=== PATIENT | female | born 1980 | race Caucasian/White ===

== ENCOUNTER 2019-01-23 00:43 | Outpatient (CLI) | payer MEDICAID | END 2019-01-23 00:44 | disposition EMS.NT | LOC: EMS 00:43 | PROVIDERS: ATTEND Surgery | DX: Z03.89 Encounter for observation for other suspected diseases and conditions ruled out (principal) ==

== ENCOUNTER 2019-01-29 08:00 | Outpatient (CLI) | payer MEDICAID ==
[2019-01-29 18:38] LABS: BASOPHILS # (AUTO) 0.1 10^3/uL (0.0-0.1); BASOPHILS % (AUTO) 0.9 %; EOSINOPHILS # (AUTO) 0.1 10^3/uL (0.0-0.7); EOSINOPHILS % (AUTO) 1.7 %; HGB - HEMOGLOBIN 12.6 g/dL (12.0-16.0); LYMPHOCYTES # (AUTO) 1.3 10^3/uL (1.5-3.5); LYMPHOCYTES % (AUTO) 21.2 %; MEAN CORPUSCULAR HEMOGLOBIN 30.9 pg (27.0-31.0); MEAN CORPUSCULAR HGB CONC 31.3 g/dL (32.0-36.0); MEAN CORPUSCULAR VOLUME 98.5 fL (81.0-99.0); MEAN PLATELET VOLUME 11.6 fL (7.9-10.8); MONOCYTES # (AUTO) 0.6 10^3/uL (0.0-1.0); MONOCYTES % (AUTO) 8.9 %; NEUTROPHILS # (AUTO) 4.2 10^3/uL (1.5-6.6); PLT - PLATELET COUNT 224 10^3/uL (130-450); RED BLOOD COUNT 4.08 10^6/uL (4.20-5.40); RED CELL DISTRIBUTION WIDTH 14.5 % (12.0-15.0); WHITE BLOOD COUNT 6.3 x10^3/uL (4.8-10.8)
[2019-01-29 18:58] LABS: ALBUMIN 4.1 g/dL (3.2-5.5); ALBUMIN/GLOBULIN RATIO 1.3 (1.0-2.2); BILIRUBIN,TOTAL 0.7 mg/dL (0.2-1.0); CREATININE 0.7 mg/dL (0.4-1.0); TOTAL PROTEIN 7.2 g/dL (6.7-8.2)
[2019-02-02 12:12] LABS: HSV 1 IGG TYPE SPECIFIC AB 5.87 index; HSV 2 IGG TYPE SPECIFIC AB 3.97 index
== END 2019-01-29 23:59 | disposition home or self-care (01) ==
LOC: LAB.WCP 08:00
PROVIDERS: ATTEND Physician Assistant
DX: Z00.00 Encounter for general adult medical examination without abnormal findings (principal); E03.9 Hypothyroidism, unspecified; Z20.2 Contact with and (suspected) exposure to infections with a predominantly sexual mode of transmission
CPT/HCPCS: 36415; 80053; 81599; 84443; 85025; 86695; 86696

== ENCOUNTER 2019-04-26 08:31 | Emergency (ER) | payer MEDICAID ==
[2019-04-26] MEDS ORDERED: DEXAMETHASONE 10 MG/ML VIAL PO STA (08:46)
[2019-04-26] MEDS ORDERED: CHERRY SYRUP 10 ML UDC PO ONE (08:46)
[2019-04-26] MEDS ORDERED: KETOROLAC 60 MG/2 ML VIAL IM STA (08:46)
[2019-04-26] MEDS ORDERED: LIDOCAINE PATCH 5% TOP STA (08:47)
--- NOTE | 2019-04-26 08:49 | ED Physician Documentation ---
PD HPI BACK PAIN - Stated complaint Stated Complaint: BACK PAIN - Chief complaint Chief Complaint: Back Pain - History obtained from History obtained from: Patient - History of Present Illness Timing - onset: Last night Timing - details: Still present Location: Lower, Left Quality: Pain, Spasm Worsened by: Movement Similar symptoms before: Has not had sx before - Additional information Additional information: The patient is a 38-year-old female who presents with left lower back pain that started last night when she bent over in the shower to shave her legs. The pain is worse with movement. She describes it as a sharp pain with spasms. She denies fever, urinary incontinence, numbness or weakness. She has had occasional milder back pain in the past, but never this bad. Review of Systems Constitutional: denies: Fever Nose: denies: Congestion Throat: denies: Sore throat Cardiac: denies: Chest pain / pressure Respiratory: denies: Dyspnea, Cough GI: denies: Abdominal Pain, Nausea, Vomiting : denies: Dysuria, Incontinent Skin: denies: Rash Musculoskeletal: reports: Back pain. denies: Extremity pain Neurologic: denies: Focal weakness, Numbness, Headache PD PAST MEDICAL HISTORY - Past Medical History Cardiovascular: None Respiratory: None Endocrine/Autoimmune: None - Present Medications Home Medications: Ambulatory Orders Medication Instructions Recorded Confirmed Buspirone HCl 10 mg PO BID 04/26/19 04/26/19 Cyclobenzaprine [Flexeril] 10 mg PO TID PRN #20 tablet 04/26/19 LORazepam [Lorazepam] 0.5 mg PO BID PRN 04/26/19 04/26/19 Levothyroxine Sodium 100 mcg PO DAILY 04/26/19 04/26/19 Lidocaine Patch 5% [Lidoderm Patch] 1 patch TOP DAILY PRN #10 patch 04/26/19 Sertraline HCl [Zoloft] 100 mg PO DAILY 04/26/19 04/26/19 buPROPion HCl [Bupropion HCl ER] 200 mg PO BID 04/26/19 04/26/19 - Allergies Allergies/Adverse Reactions: Allergies Allergy/AdvReac Type Severity Reaction Status Date / Time acetaminophen [From Percocet] Allergy Respiratory Verified 04/26/19 08:37 morphine Allergy Respiratory Verified 04/26/19 08:37 oxycodone [From Percocet] Allergy Respiratory Verified 04/26/19 08:37 PD ED PE NORMAL - Vitals Vital signs reviewed: Yes (Normal) - General General: Alert and oriented X 3, Well developed/nourished - HEENT HEENT: Atraumatic - Neck Neck: Supple, no meningeal sign, No bony TTP, No adenopathy - Cardiac Cardiac: RRR - Respiratory Respiratory: No respiratory distress, Clear bilaterally - Abdomen Abdomen: Soft, Non tender - Back Back: No CVA TTP, No spinal TTP, Other (There is tenderness to palpation in the left paralumbar musculature. No tenderness along the spinous processes.) - Derm Derm: No rash - Extremities Extremities: No edema, No calf tenderness / cord, Other (Straight leg raise test is negative bilaterally.) - Neuro Neuro: Alert and oriented X 3, No motor deficit, No sensory deficit, Other (Deep tendon reflexes are 2+ and equal bilaterally at the patellar and Achilles tendons.) Results - Vitals Vitals: Vital Signs - 24 hr 04/26/19 08:37 Temperature 37 C Heart Rate 84 Respiratory 18 Rate Blood Pressure 136/67 H O2 Saturation 97 Oxygen O2 Source Room air PD MEDICAL DECISION MAKING - ED course Complexity details: reviewed old records, re-evaluated patient, considered differential, d/w patient ED course: The patient's presentation is most consistent with lumbar strain. Her presentation does not suggest epidural abscess, spinal stenosis, or cauda equina syndrome. Treatment in the emergency department included administration of ketorolac 60 mg IM, dexamethasone 10 mg orally, and Lidoderm patch. She is being discharged with prescriptions for Lidoderm patch and Flexeril. I discussed with her the expected course of illness, symptomatic treatment and outpatient follow-up, as well as potentially worrisome signs or symptoms that should prompt reevaluation in the emergency department. Departure - Departure Disposition: 01 Home, Self Care Clinical Impression: Low back pain Qualifiers: Chronicity: acute Back pain laterality: left Sciatica presence: without sciatica Qualified Code(s): M54.5 - Low back pain Condition: Stable Instructions: ED Low Back Pain Injury Follow-Up: Mindi Palencia PA [Primary Care Provider] - Prescriptions: Cyclobenzaprine [Flexeril] 10 mg PO TID PRN #20 tablet PRN Reason: Spasms Lidocaine Patch 5% [Lidoderm Patch] 1 patch TOP DAILY PRN #10 patch PRN Reason: pain Comments: Apply ice pack to your lower back intermittently for the next several days. You can use Lidoderm patch daily as prescribed. You can use Flexeril as prescribed if needed for muscle spasm. You can also use ibuprofen, up to 800 mg 3 times daily for anti-inflammatory effect. Let pain be your guide to activity level. Follow-up with your primary physician within 2 weeks. Call to schedule an appointment. Return to the emergency department if you develop increasing pain, or otherwise worsening symptoms. Forms: Activity restrictions
[2019-04-26 09:45] VITALS: BP 125/84
== END 2019-04-26 09:52 | disposition home or self-care (01) ==
LOC: ED 08:31
DX: M54.5 Low back pain (principal)
CPT/HCPCS: 96372; 99283; A9270

== ENCOUNTER 2019-07-28 12:05 | Emergency (ER) | payer MEDICAID ==
[2019-07-28 12:14] VITALS: BP 119/67
--- NOTE | 2019-07-28 13:00 | ED Physician Documentation ---
History of Present Illness - Stated complaint Stated Complaint: COUGH - Chief complaint Chief Complaint: Fever - History obtained from History obtained from: Patient (39-year-old otherwise healthy woman got sick last night with cough minimally productive, body aches, fevers and chills. Also runny nose. 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 No underlying asthma or possibility of . No shortness of breath.) Review of Systems Constitutional: reports: Fever, Chills, Myalgias, Fatigue Nose: reports: Rhinorrhea / runny nose Throat: denies: Sore throat Respiratory: reports: Cough. 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 : None HEENT: None Psych: Depression, Anxiety Musculoskeletal: None Derm: None - Past Surgical History Past Surgical History: Yes General: Cholecystectomy HEENT: Tonsil/Adenoidectomy - Present Medications Home Medications: Ambulatory Orders Medication Instructions Recorded Confirmed Buspirone HCl 10 mg PO BID 04/26/19 04/26/19 Cyclobenzaprine [Flexeril] 10 mg PO TID PRN #20 tablet 04/26/19 LORazepam [Lorazepam] 0.5 mg PO BID PRN 04/26/19 04/26/19 Levothyroxine Sodium 100 mcg PO DAILY 04/26/19 04/26/19 Lidocaine Patch 5% [Lidoderm Patch] 1 patch TOP DAILY PRN #10 patch 04/26/19 Sertraline HCl [Zoloft] 100 mg PO DAILY 04/26/19 04/26/19 buPROPion HCl [Bupropion HCl ER] 200 mg PO BID 04/26/19 04/26/19 Ibuprofen [Motrin] 800 mg PO Q8H PRN #30 tablet 07/28/19 - Allergies Allergies/Adverse Reactions: Allergies Allergy/AdvReac Type Severity Reaction Status Date / Time acetaminophen [From Percocet] Allergy Respiratory Verified 07/28/19 12:12 morphine Allergy Respiratory Verified 07/28/19 12:12 oxycodone [From Percocet] Allergy Respiratory Verified 07/28/19 12:12 - Social History Does the pt smoke?: Yes Smoking Status: Current every day smoker Does the pt drink ETOH?: Yes Does the pt have substance abuse?: Yes - Immunizations Immunizations are current?: No - POLST Patient has POLST: No PD ED PE NORMAL - Vitals Vital signs reviewed: Yes - General General: Alert and oriented X 3, No acute distress - HEENT HEENT: Other (mild conjuctivits) - Neck Neck: Supple, no meningeal sign, No bony TTP - Cardiac Cardiac: RRR, No murmur - Respiratory Respiratory: No respiratory distress, Clear bilaterally - Abdomen Abdomen: Non tender - Back Back: No CVA TTP, No spinal TTP - Derm Derm: No rash - Neuro Neuro: Alert and oriented X 3, Normal speech Results - Vitals Vitals: Vital Signs - 24 hr 07/28/19 12:12 Temperature 36.5 C Heart Rate 83 Respiratory 16 Rate Blood Pressure 119/67 O2 Saturation 98 Oxygen O2 Source Room air - Labs Labs: Laboratory Tests 07/28/19 12:17 Influenza A (Rapid) Negative Influenza B (Rapid) Negative PD MEDICAL DECISION MAKING - ED course ED course: This is a 39-year-old woman who presents with an acute illness consistent with influenza, her flu swab is negative. Otherwise her symptoms and signs are fairly typical with bilateral conjunctivitis, runny nose, body aches, clear lungs. We discussed Tamiflu but I did not recommend it given the negative swab, we did discuss it may be a false negative given her typical symptoms and the underlying outbreak. She is agreeable and will do conservative measures at home and mostly needs a work note. Departure - Departure Disposition: 01 Home, Self Care Clinical Impression: Flu-like symptoms Condition: Good Record reviewed to determine appropriate education?: Yes Instructions: ED Flu Prescriptions: Ibuprofen [Motrin] 800 mg PO Q8H PRN #30 tablet PRN Reason: PAIN &/OR FEVER Comments: Return if you worsen, especially if you develop shortness of breath or other new symptoms. Forms: Activity restrictions
== END 2019-07-28 13:03 | disposition home or self-care (01) ==
LOC: ED 12:05
DX: H10.9 Unspecified conjunctivitis (principal); R09.89 Other specified symptoms and signs involving the circulatory and respiratory systems; R05 Cough; R50.9 Fever, unspecified; M79.18 Myalgia, other site; F17.200 Nicotine dependence, unspecified, uncomplicated
CPT/HCPCS: 87275; 87276; 99283

== ENCOUNTER 2019-08-30 20:23 | Emergency (ER) | payer MEDICAID ==
--- NOTE | 2019-08-30 20:41 | ED Physician Documentation ---
History of Present Illness - Stated complaint Stated Complaint: ABD PAIN/CRAMPING - Chief complaint Chief Complaint: Abd Pain - History obtained from History obtained from: Patient (the patient is a 39 Y/O F who p/w a cc of crampy abd discomfort and bloating for the last 3 days, she states she started the keto diet 1 week ago and is now having alternating periods of loose stools and constipation, she denies bloody stools or fevers or severe adb pain, has had a previous cholecystectomy.) Review of Systems Ten Systems: 10 systems reviewed and negative Constitutional: reports: Reviewed and negative Eyes: reports: Reviewed and negative Ears: reports: Reviewed and negative Nose: reports: Reviewed and negative Throat: reports: Reviewed and negative Cardiac: reports: Reviewed and negative Respiratory: reports: Reviewed and negative GI: reports: Nausea, Constipation, Diarrhea : reports: Reviewed and negative Skin: reports: Reviewed and negative Musculoskeletal: reports: Reviewed and negative Neurologic: reports: Reviewed and negative Psychiatric: reports: Reviewed and negative Endocrine: reports: Reviewed and negative Immunocompromised: reports: Reviewed and negative PD PAST MEDICAL HISTORY - Past Medical History Cardiovascular: None Respiratory: None Neuro: None Endocrine/Autoimmune: None GI: None 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 : None HEENT: None Psych: Depression, Anxiety Musculoskeletal: None Derm: None - Past Surgical History Past Surgical History: Yes General: Cholecystectomy HEENT: Tonsil/Adenoidectomy - Present Medications Home Medications: Ambulatory Orders Medication Instructions Recorded Confirmed Buspirone HCl 10 mg PO BID 04/26/19 04/26/19 Cyclobenzaprine [Flexeril] 10 mg PO TID PRN #20 tablet 04/26/19 LORazepam [Lorazepam] 0.5 mg PO BID PRN 04/26/19 04/26/19 Levothyroxine Sodium 100 mcg PO DAILY 04/26/19 04/26/19 Lidocaine Patch 5% [Lidoderm Patch] 1 patch TOP DAILY PRN #10 patch 04/26/19 Sertraline HCl [Zoloft] 100 mg PO DAILY 04/26/19 04/26/19 buPROPion HCl [Bupropion HCl ER] 200 mg PO BID 04/26/19 04/26/19 Ibuprofen [Motrin] 800 mg PO Q8H PRN #30 tablet 07/28/19 Dicyclomine [Bentyl] 20 mg PO QID 2 Days #10 capsule 08/31/19 - Allergies Allergies/Adverse Reactions: Allergies Allergy/AdvReac Type Severity Reaction Status Date / Time acetaminophen [From Percocet] Allergy Respiratory Verified 07/28/19 12:12 morphine Allergy Respiratory Verified 07/28/19 12:12 oxycodone [From Percocet] Allergy Respiratory Verified 07/28/19 12:12 - Social History Does the pt smoke?: Yes Smoking Status: Current every day smoker Does the pt drink ETOH?: Yes Does the pt have substance abuse?: Yes - Immunizations Immunizations are current?: No - POLST Patient has POLST: No PD ED PE NORMAL - Vitals Vital signs reviewed: Yes - General General: Alert and oriented X 3, No acute distress - HEENT HEENT: PERRL - Neck Neck: Supple, no meningeal sign - Cardiac Cardiac: RRR, No murmur - Respiratory Respiratory: Clear bilaterally - Abdomen Abdomen: Normal bowel sounds, Soft, Non tender, Non distended, No organomegaly - Derm Derm: Warm and dry - Extremities Extremities: No deformity - Neuro Neuro: Alert and oriented X 3, 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, No motor deficit, No sensory deficit, Normal speech - Psych Psych: Normal mood, Normal affect Results - Vitals Vitals: Vital Signs - 24 hr 08/30/19 20:34 Temperature 36.9 C Heart Rate 75 Respiratory 14 Rate Blood Pressure 144/63 H O2 Saturation 100 Oxygen O2 Source Room air - Labs Labs: Laboratory Tests 08/30/19 08/30/19 08/30/19 20:50 21:30 21:30 WBC 11.9 H RBC 4.35 Hgb 13.4 Hct 40.3 MCV 92.6 MCH 30.8 MCHC 33.3 RDW 13.2 Plt Count 217 MPV 11.8 H Neut # (Auto) 9.6 H Lymph # (Auto) 1.2 L [place] # (Auto) 0.8 Eos # (Auto) 0.2 Baso # (Auto) 0.1 Absolute Nucleated RBC 0.00 Nucleated RBC % 0.0 Sodium 136 Potassium 3.3 L Chloride 99 L Carbon Dioxide 21 Anion Gap 16.0 H BUN 12 Creatinine 0.8 Estimated GFR (MDRD) 80 L Glucose 76 Lactic Acid Calcium 8.9 Total Bilirubin 0.8 AST 14 ALT 19 Alkaline Phosphatase 43 Total Protein 7.3 Albumin 4.1 Globulin 3.2 Albumin/Globulin Ratio 1.3 Lipase 28 Urine Color YELLOW Urine Clarity CLEAR Urine pH 5.0 Ur Specific [place] 1.010 Urine Protein NEGATIVE Urine Glucose (UA) NEGATIVE Urine Ketones 15 H Urine Occult Blood NEGATIVE Urine Nitrite NEGATIVE Urine Bilirubin NEGATIVE Urine Urobilinogen 0.2 (NORMAL) Ur Leukocyte Esterase NEGATIVE Ur Microscopic Review NOT INDICATED Urine Culture Comments NOT INDICATED Urine HCG, Qual NEGATIVE 08/30/19 21:30 WBC RBC Hgb Hct MCV MCH MCHC RDW Plt Count MPV Neut # (Auto) Lymph # (Auto) [place] # (Auto) Eos # (Auto) Baso # (Auto) Absolute Nucleated RBC Nucleated RBC % Sodium Potassium Chloride Carbon Dioxide Anion Gap BUN Creatinine Estimated GFR (MDRD) Glucose Lactic Acid 0.7 Calcium Total Bilirubin AST ALT Alkaline Phosphatase Total Protein Albumin Globulin Albumin/Globulin Ratio Lipase Urine Color Urine Clarity Urine pH Ur Specific [place] Urine Protein Urine Glucose (UA) Urine Ketones Urine Occult Blood Urine Nitrite Urine Bilirubin Urine Urobilinogen Ur Leukocyte Esterase Ur Microscopic Review Urine Culture Comments Urine HCG, Qual PD MEDICAL DECISION MAKING - ED course Complexity details: re-evaluated patient (pain is 08/06 at 00:24. patient updated on results. 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 case discussed, recommend close follow up and discharge patient home. ) Departure - Departure Disposition: 01 Home, Self Care Clinical Impression: Abdominal pain Qualifiers: Abdominal location: unspecified location Qualified Code(s): R10.9 - Unspecified abdominal pain Condition: Good Instructions: Abdominal Pain Follow-Up: Mindi Palencia PA [Primary Care Provider] - Tomorrow Kelsey Simeon MD [Provider Admit Priv/Credential] - Within 1 week Prescriptions: Dicyclomine [Bentyl] 20 mg PO QID 2 Days #10 capsule
[2019-08-30] MEDS ORDERED: DICYCLOMINE 10 MG CAPSULE PO STA (20:59)
[2019-08-30 21:09] LABS: BILIRUBIN,URINE NEGATIVE (NEGATIVE); GLUCOSE, URINE (UA) NEGATIVE (NEGATIVE); KETONES,URINE (UA) 15 mg/dL (NEGATIVE); LEUKOCYTE ESTERASE, URINE NEGATIVE (NEGATIVE); NITRITE,URINE NEGATIVE (NEGATIVE); OCCULT BLOOD,URINE NEGATIVE (NEGATIVE); PROTEIN,URINE NEGATIVE (NEGATIVE); UROBILINOGEN,URINE 0.2 (NORMAL) E.U./dL (NORMAL)
[2019-08-30 21:11] LABS: CLARITY,URINE CLEAR (CLEAR); HCG UR QUAL NEGATIVE
[2019-08-30 21:38] LABS: BASOPHILS # (AUTO) 0.1 10^3/uL (0.0-0.1); BASOPHILS % (AUTO) 0.6 %; EOSINOPHILS # (AUTO) 0.2 10^3/uL (0.0-0.7); EOSINOPHILS % (AUTO) 1.3 %; HGB - HEMOGLOBIN 13.4 g/dL (12.0-16.0); LYMPHOCYTES # (AUTO) 1.2 10^3/uL (1.5-3.5); LYMPHOCYTES % (AUTO) 10.1 %; MEAN CORPUSCULAR HEMOGLOBIN 30.8 pg (27.0-31.0); MEAN CORPUSCULAR HGB CONC 33.3 g/dL (32.0-36.0); MEAN CORPUSCULAR VOLUME 92.6 fL (81.0-99.0); MEAN PLATELET VOLUME 11.8 fL (7.9-10.8); MONOCYTES # (AUTO) 0.8 10^3/uL (0.0-1.0); MONOCYTES % (AUTO) 6.9 %; NEUTROPHILS # (AUTO) 9.6 10^3/uL (1.5-6.6); NEUTROPHILS % (AUTO) 80.6 %; PLT - PLATELET COUNT 217 10^3/uL (130-450); RED BLOOD COUNT 4.35 10^6/uL (4.20-5.40); RED CELL DISTRIBUTION WIDTH 13.2 % (12.0-15.0); WHITE BLOOD COUNT 11.9 x10^3/uL (4.8-10.8)
[2019-08-30] MEDS: SODIUM CHLORIDE 0.9% 1,000 ML IV ONE (21:46)
[2019-08-30 22:20] LABS: ALBUMIN 4.1 g/dL (3.2-5.5); ALBUMIN/GLOBULIN RATIO 1.3 (1.0-2.2); BILIRUBIN,TOTAL 0.8 mg/dL (0.2-1.0); CALCIUM 8.9 mg/dL (8.5-10.3); CREATININE 0.8 mg/dL (0.4-1.0); TOTAL PROTEIN 7.3 g/dL (6.7-8.2)
[2019-08-30] MEDS ORDERED: ONDANSETRON 4 MG/2 ML VIAL IVP STA (22:25)
[2019-08-30] MEDS ORDERED: fentaNYL 100 MCG/2 ML VIAL IVP STA (22:26)
[2019-08-30] MEDS ORDERED: IOVERSOL 320 100 ML VIAL IVP ONE ×2 (22:51→23:25)
--- NOTE | 2019-08-31 00:07 | CT Report ---
Reason: abd pain Procedure Date: 08/30/2019 Accession Number: [id number] / [id number] Procedure: CT - Abdomen/Pelvis W CPT Code: Final Report FULL RESULT: EXAM: CT ABDOMEN AND PELVIS EXAM DATE: 08/30/2019 11:27 PM. CLINICAL HISTORY: Abd pain. Recent keto diet. COMPARISONS: None. TECHNIQUE: Routine helical CT imaging was performed through the abdomen and pelvis. IV contrast: OPTI 320 100ML. Enteric contrast: No. Reconstructions: Coronal and sagittal. In accordance with CT protocol optimization, one or more of the following dose reduction techniques were utilized for this exam: automated exposure control, adjustment of mA and/or KV based on patient size, or use of iterative reconstructive technique. FINDINGS: Lung Bases: Unremarkable. Liver: Normal. No masses. Gallbladder/Bile Ducts: Status post cholecystectomy. Spleen: Normal. Pancreas: Normal. Adrenal Glands: Normal. Kidneys: Normal. No masses or hydronephrosis. Peritoneal Cavity/Bowel: Some mild diffuse wall thickening of the colon, with prominent haustral folds. Also some mildly enlarged mesenteric and right ileocolic chain lymph nodes, measuring up to 1 cm in size. No free air or free fluid. Slightly more prominent mucosal enhancement at the terminal ileum. Approximately 2.8 cm segment of jejunojejunal intussusception in the left anterior abdomen, best seen on the transverse image 49 of series 4, coronal image 14 series 6. Another jejunojejunal intussusception in the left abdomen best seen on image 22 of series 6, and image 19 of series 7. Measures approximately 6 cm. No proximal dilatation that would suggest obstruction at this time. Some high density fluid or material in the colon, from unknown etiology. The appendix is well visualized and normal. Pelvic Organs: Normal. The bladder and visualized pelvic organs are within normal limits. Vasculature: No aneurysms or other significant abnormality. Bones: No significant abnormality. Other: None. IMPRESSION: At least two jejunojejunal intussusceptions, without any evidence of a high-grade bowel obstruction at this time. Transient adult jejunal intussusception can be a rare cause of abdominal pain. However, there is also some apparent wall thickening involving the colon, with prominence of the haustral folds. Correlate clinically for any symptoms of gastroenteritis or history of inflammatory bowel disease. Mildly enlarged mesenteric lymph nodes may be reactive. [facility] The call report notification system was initiated by Dr. Fernando Mai at 11:52 PM on 08/30/2019. The above call report findings were discussed with Bryan Ma by Dr. Fernando Mai at 12:04 AM on 08/31/2019.
[2019-08-31] MEDS: SODIUM CHLORIDE 0.9% 1,000 ML IV ONE (00:23)
[2019-08-31 00:39] VITALS: BP 113/56
== END 2019-08-31 00:45 | disposition home or self-care (01) ==
LOC: ED 20:23
DX: R10.9 Unspecified abdominal pain (principal); R93.5 Abnormal findings on diagnostic imaging of other abdominal regions, including retroperitoneum; F17.200 Nicotine dependence, unspecified, uncomplicated
CPT/HCPCS: 36415; 74177; 80053; 81003; 81025; 83605; 83690; 85025; 96374; 99284; 99285; A9270; Q9967; 81001; 87086

== ENCOUNTER 2019-09-01 08:00 | Outpatient (CLI) | payer MEDICAID ==
[2019-09-01 13:20] LABS: BASOPHILS # (AUTO) 0.1 10^3/uL (0.0-0.1); BASOPHILS % (AUTO) 0.5 %; EOSINOPHILS # (AUTO) 0.2 10^3/uL (0.0-0.7); EOSINOPHILS % (AUTO) 1.4 %; HGB - HEMOGLOBIN 13.4 g/dL (12.0-16.0); LYMPHOCYTES # (AUTO) 1.2 10^3/uL (1.5-3.5); LYMPHOCYTES % (AUTO) 10.1 %; MEAN CORPUSCULAR HEMOGLOBIN 31.2 pg (27.0-31.0); MEAN CORPUSCULAR HGB CONC 33.5 g/dL (32.0-36.0); MEAN PLATELET VOLUME 12.9 fL (7.9-10.8); MONOCYTES % (AUTO) 8.5 %; NEUTROPHILS # (AUTO) 9.2 10^3/uL (1.5-6.6); NEUTROPHILS % (AUTO) 78.8 %; PLT - PLATELET COUNT 235 10^3/uL (130-450); RED CELL DISTRIBUTION WIDTH 13.2 % (12.0-15.0); WHITE BLOOD COUNT 11.6 x10^3/uL (4.8-10.8)
[2019-09-01 14:02] LABS: CALCIUM 8.7 mg/dL (8.5-10.3); CREATININE 0.7 mg/dL (0.4-1.0)
== END 2019-09-01 23:59 | disposition home or self-care (01) ==
LOC: LAB.WCP 08:00
PROVIDERS: ATTEND Family Medicine
DX: R10.9 Unspecified abdominal pain (principal)
CPT/HCPCS: 36415; 80048; 83993; 85025; 85651; 86021

== ENCOUNTER 2020-06-08 12:16 | Outpatient (CLI) | payer MEDICAID | END 2020-06-08 12:17 | disposition home or self-care (01) | LOC: COV 12:16 | PROVIDERS: ATTEND Family Medicine | DX: R05 Cough (principal); R09.81 Nasal congestion; Z20.828 Contact with and (suspected) exposure to other viral communicable diseases ==

== ENCOUNTER 2020-09-06 07:32 | Emergency (ER) | payer MEDICAID ==
[2020-09-06 10:11] VITALS: BP 119/61
[2020-09-06] MEDS ORDERED: HYDROcod/ACETAM 5/325 MG TABLET PO STA (10:41)
--- NOTE | 2020-09-06 10:44 | ED Physician Documentation ---
History of Present Illness - Stated complaint Stated Complaint: BACK PX - Chief complaint Chief Complaint: Back Pain - History obtained from History obtained from: Patient - Additonal information Additional information: Patient comes emergency department chief complaint of low back pain since yesterday. Patient states she was in the bath and attempting to wash herself, when she bent over toward her left leg and suddenly felt a twinge in her left low back. Patient states that she instantly felt a sense of spasm and pain in the area. Patient states that it seemed worse overnight and she did not sleep very well. She states that her back was stiff and painful this morning when she tried to get up. Patient denies any loss of bowel or bladder control. No urinary symptoms. She has a mild amount of numbness and tingling in her left leg. No pain shooting down the leg. No abdominal pain, nausea, or fevers. No other complaints at this time. She does states she has a history of Crohn's dis ease and that she cannot take NSAIDs. She has tried taking Tylenol at home, which has not helped much. Review of Systems Ten Systems: 10 systems reviewed and negative Constitutional: reports: Reviewed and negative Eyes: reports: Reviewed and negative Ears: reports: Reviewed and negative Nose: reports: Reviewed and negative Throat: reports: Reviewed and negative Cardiac: reports: Reviewed and negative Respiratory: reports: Reviewed and negative GI: reports: Reviewed and negative : reports: Reviewed and negative. 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 HEENT: None Psych: Depression, Anxiety Musculoskeletal: None Derm: None - Past Surgical History Past Surgical History: Yes General: Cholecystectomy HEENT: Tonsil/Adenoidectomy - Present Medications Home Medications: Ambulatory Orders Medication Instructions Recorded Confirmed Buspirone HCl 10 mg PO BID 04/26/19 02/17/20 LORazepam [Lorazepam] 0.5 mg PO BID PRN 04/26/19 02/17/20 Levothyroxine Sodium 100 mcg PO DAILY 04/26/19 02/17/20 buPROPion HCl [Bupropion HCl ER] 200 mg PO BID 04/26/19 02/17/20 Mesalamine 4 tab PO DAILY 02/17/20 02/17/20 azaTHIOprine [Azathioprine] 50 mg PO DAILY 02/17/20 02/17/20 Cyclobenzaprine [Flexeril] 10 mg PO TID PRN #20 tab 09/06/20 HYDROcod/ACETAM 5/325 [[place] 5/325] 1 - 2 ea PO Q6H PRN #15 09/06/20 Sertraline HCl 100 mg PO DAILY 09/06/20 09/06/20 - Allergies Allergies/Adverse Reactions: Allergies Allergy/AdvReac Type Severity Reaction Status Date / Time acetaminophen [From Percocet] Allergy Respiratory Verified 02/17/20 11:07 morphine Allergy Respiratory Verified 02/17/20 11:06 oxycodone [From Percocet] Allergy Respiratory Verified 02/17/20 11:06 pollen extracts Allergy Respiratory Verified 05/25/20 11:03 - Social History Does the pt smoke?: Yes Smoking Status: Current every day smoker Does the pt drink ETOH?: Yes Does the pt have substance abuse?: No Substance Use and Type: Marijuana - Immunizations Immunizations are current?: No - POLST Patient has POLST: No PD ED PE NORMAL - Vitals Vital signs reviewed: Yes - General General: Alert and oriented X 3, No acute distress, Well developed/nourished - HEENT HEENT: Atraumatic, PERRL, EOMI, Moist mucous membranes - Neck Neck: Supple, no meningeal sign, No bony TTP - Cardiac Cardiac: RRR, No murmur, Strong equal pulses - Respiratory Respiratory: No respiratory distress, Clear bilaterally - Abdomen Abdomen: Soft, Non tender, Non distended - Back Back: No spinal TTP, Other (Mild tenderness palpation over the left lumbosacral paraspinal musculature.) - Derm Derm: Normal color, Warm and dry, No rash - Extremities Extremities: No deformity, No edema, No calf tenderness / cord - Neuro Neuro: Alert and oriented X 3 - Psych Psych: Normal mood, Normal affect Results - Vitals Vitals: Vital Signs - 24 hr 09/06/20 09/06/20 09/06/20 07:44 07:52 09:52 Temperature 36.8 C 37.0 C 36.8 C Heart Rate 82 73 71 Respiratory 16 16 16 Rate Blood Pressure 117/80 124/65 119/61 O2 Saturation 94 100 98 Oxygen O2 Source Room air PD MEDICAL DECISION MAKING - ED course Complexity details: considered differential, d/w patient ED course: I discussed with the patient that I do not find evidence of a serious or potentially emergent cause or consequence of her back pain/injury. I suspect a muscular strain, and we have discussed that this will be self-limited in time. The patient's been given a dose of hydrocodone here. I will prescribe hydrocodone and Flexeril for her. We have discussed that if in 2 weeks she does not notice any improvement, she may need to speak with her primary care physician about having an MRI done. If she develops progressive neurologic deficit of her lower extremities, or loss of bowel or bladder control, then she should return to the emergency department immediately. Departure - Departure Disposition: 01 Home, Self Care Clinical Impression: Low back strain Qualifiers: Encounter type: initial encounter Qualified Code(s): S39.012A - Strain of muscle, fascia and tendon of lower back, initial encounter Radiculopathy Qualifiers: Spinal region: lumbosacral Qualified Code(s): M54.17 - Radiculopathy, lumbosacral region Condition: Stable Instructions: ED Sprain Strain Lumbar Prescriptions: Cyclobenzaprine [Flexeril] 10 mg PO TID PRN #20 tab PRN Reason: Spasms HYDROcod/ACETAM 5/325 [[place] 5/325] 1 - 2 ea PO Q6H PRN #15 PRN Reason: Pain Forms: Activity restrictions
== END 2020-09-06 10:56 | disposition home or self-care (01) ==
LOC: ED 07:32
DX: S39.012A Strain of muscle, fascia and tendon of lower back, initial encounter (principal); X50.1XXA Overexertion from prolonged static or awkward postures, initial encounter; Y93.E1 Activity, personal bathing and showering; Y92.002 Bathroom of unspecified non-institutional (private) residence as the place of occurrence of the external cause; M54.17 Radiculopathy, lumbosacral region; K50.90 Crohn's disease, unspecified, without complications; F17.200 Nicotine dependence, unspecified, uncomplicated
CPT/HCPCS: 99282; 99284; A9270

== ENCOUNTER 2021-07-08 15:46 | Emergency (ER) | payer MEDICAID ==
[2021-07-08 16:22] LABS: BILIRUBIN,URINE NEGATIVE (NEGATIVE); GLUCOSE, URINE (UA) NEGATIVE (NEGATIVE); KETONES,URINE (UA) NEGATIVE (NEGATIVE); LEUKOCYTE ESTERASE, URINE NEGATIVE (NEGATIVE); NITRITE,URINE NEGATIVE (NEGATIVE); OCCULT BLOOD,URINE NEGATIVE (NEGATIVE); PROTEIN,URINE NEGATIVE (NEGATIVE); UROBILINOGEN,URINE 0.2 (NORMAL) E.U./dL (NORMAL)
[2021-07-08 16:24] LABS: CLARITY,URINE CLEAR (CLEAR); HCG UR QUAL POSITIVE
[2021-07-08 16:39] LABS: BASOPHILS # (AUTO) 0.1 10^3/uL (0.0-0.1); BASOPHILS % (AUTO) 0.9 %; EOSINOPHILS # (AUTO) 0.1 10^3/uL (0.0-0.7); EOSINOPHILS % (AUTO) 0.8 %; HCT - HEMATOCRIT 38.4 % (37.0-47.0); HGB - HEMOGLOBIN 13.3 g/dL (12.0-16.0); LYMPHOCYTES # (AUTO) 1.3 10^3/uL (1.5-3.5); MEAN CORPUSCULAR HGB CONC 34.6 g/dL (32.0-36.0); MEAN CORPUSCULAR VOLUME 92.3 fL (81.0-99.0); MEAN PLATELET VOLUME 10.9 fL (7.9-10.8); MONOCYTES # (AUTO) 0.4 10^3/uL (0.0-1.0); MONOCYTES % (AUTO) 5.9 %; NEUTROPHILS # (AUTO) 5.6 10^3/uL (1.5-6.6); NEUTROPHILS % (AUTO) 75.1 %; PLT - PLATELET COUNT 234 10^3/uL (130-450); RED BLOOD COUNT 4.16 10^6/uL (4.20-5.40); RED CELL DISTRIBUTION WIDTH 13.9 % (12.0-15.0); WHITE BLOOD COUNT 7.4 x10^3/uL (4.8-10.8)
[2021-07-08 16:53] LABS: ALBUMIN 4.3 g/dL (3.2-5.5); ALBUMIN/GLOBULIN RATIO 1.3 (1.0-2.2); BILIRUBIN,TOTAL 0.6 mg/dL (0.2-1.0); CALCIUM 9.2 mg/dL (8.5-10.3); CREATININE 0.7 mg/dL (0.4-1.0); MAGNESIUM 1.9 mg/dL (1.7-2.8); POTASSIUM 3.7 mmol/L (3.5-5.0); TOTAL PROTEIN 7.7 g/dL (6.7-8.2)
--- NOTE | 2021-07-08 17:22 | ED Physician Documentation ---
PD HPI CHEST PAIN - Stated complaint Stated Complaint: HEART PALPUTATIONS - Chief complaint Chief Complaint: Cardiac - History obtained from History obtained from: Patient - History of Present Illness Timing - onset: How many weeks ago (has noted occasional skipping feeling of heart rate over past few weeks, with more frequent the past few days. Most often at night.) Timing - onset during: Rest. No: Exertion Timing - duration: Seconds Timing - details: Intermittant Quality: Other (just the skipping feeling). No: Pressure, Tightness Location: Substernal Associated symptoms: Palpitations, Other (she had run out of her thyroid med 6 days ago and does not have refill available until (in 2 days).). No: Shortness of air, Diaphoresis, Nausea, Vomiting Similar symptoms before: Has not had sx before Recently seen: Clinic (went to walk in and was referred to ER for eval (clinic provider when I talked with him, I advised we would just get lytes/chemistry labs and not really much else).) Review of Systems Constitutional: denies: Fever, Chills Nose: denies: Rhinorrhea / runny nose, Congestion Throat: denies: Sore throat Cardiac: reports: Palpitations. denies: Chest pain / pressure, Pedal edema, Calf pain Respiratory: denies: Dyspnea, Cough GI: reports: Abdominal Pain (mild lower abd cramping the past few days.) : reports: LMP (3 weeks ago). denies: Dysuria, Frequency, Irregular menses Neurologic: denies: Generalized weakness, Near syncope PD PAST MEDICAL HISTORY - Past Medical History Cardiovascular: None Respiratory: None Neuro: None Endocrine/Autoimmune: None GI: Crohn's disease [employer]: None : None HEENT: None Psych: Depression, Anxiety Musculoskeletal: None Derm: None - Past Surgical History Past Surgical History: Yes General: Cholecystectomy HEENT: Tonsil/Adenoidectomy - Present Medications Home Medications: Ambulatory Orders Medication Instructions Recorded Confirmed Buspirone HCl 10 mg PO BID 04/26/19 01/26/21 LORazepam [Lorazepam] 0.5 mg PO BID PRN 04/26/19 01/26/21 Levothyroxine Sodium 100 mcg PO DAILY 04/26/19 01/26/21 buPROPion HCl [Bupropion HCl ER] 200 mg PO BID 04/26/19 01/26/21 Mesalamine 4 tab PO DAILY 02/17/20 01/26/21 Sertraline HCl 100 mg PO DAILY 09/06/20 01/26/21 - Allergies Allergies/Adverse Reactions: Allergies Allergy/AdvReac Type Severity Reaction Status Date / Time acetaminophen [From Percocet] Allergy Respiratory Verified 07/08/21 15:53 morphine Allergy Respiratory Verified 07/08/21 15:53 oxycodone [From Percocet] Allergy Respiratory Verified 07/08/21 15:53 pollen extracts Allergy Respiratory Verified 07/08/21 15:53 - Social History Does the pt smoke?: Yes Smoking Status: Current every day smoker Does the pt drink ETOH?: Yes ETOH Use: Other (only occasional) Does the pt have substance abuse?: No Additional Social History: she does drink several coffees daily - Immunizations Immunizations are current?: No - POLST Patient has POLST: No PD ED PE NORMAL - Vitals Vital signs reviewed: Yes - General General: Alert and oriented X 3, No acute distress, Well developed/nourished - HEENT HEENT: Pharynx benign - Neck Neck: Supple, no meningeal sign, No adenopathy - Cardiac Cardiac: RRR, No murmur, No rub - Respiratory Respiratory: Clear bilaterally - Abdomen Abdomen: Soft, Non tender - Female Female : Deferred - Derm Derm: Normal color, Warm and dry - Extremities Extremities: No edema, No calf tenderness / cord - Neuro Neuro: Alert and oriented X 3, No motor deficit, Normal speech Results - Vitals Vitals: Vital Signs - 24 hr 07/08/21 07/08/21 07/08/21 15:53 18:50 19:58 Temperature 36.7 C Heart Rate 83 68 71 Respiratory 18 18 16 Rate Blood Pressure 145/77 H 130/65 126/62 O2 Saturation 96 96 98 Oxygen O2 Source Room air - Labs Labs: Laboratory Tests 07/08/21 07/08/21 07/08/21 16:13 16:36 16:36 WBC 7.4 RBC 4.16 L Hgb 13.3 Hct 38.4 MCV 92.3 MCH 32.0 H MCHC 34.6 RDW 13.9 Plt Count 234 MPV 10.9 H Neut # (Auto) 5.6 Lymph # (Auto) 1.3 L Smyth # (Auto) 0.4 Eos # (Auto) 0.1 Baso # (Auto) 0.1 Absolute Nucleated RBC 0.00 Nucleated RBC % 0.0 Sodium 134 L Potassium 3.7 Chloride 100 L Carbon Dioxide 24 Anion Gap 10.0 BUN 12 Creatinine 0.7 Estimated GFR (MDRD) 93 Glucose 91 Calcium 9.2 Magnesium 1.9 Total Bilirubin 0.6 AST 17 ALT 19 Alkaline Phosphatase 45 Total Protein 7.7 Albumin 4.3 Globulin 3.4 Albumin/Globulin Ratio 1.3 Lipase 24 TSH HCG, Quant Urine Color YELLOW Urine Clarity CLEAR Urine pH 6.0 Ur Specific [place] <=1.005 Urine Protein NEGATIVE Urine Glucose (UA) NEGATIVE Urine Ketones NEGATIVE Urine Occult Blood NEGATIVE Urine Nitrite NEGATIVE Urine Bilirubin NEGATIVE Urine Urobilinogen 0.2 (NORMAL) Ur Leukocyte Esterase NEGATIVE Ur Microscopic Review NOT INDICATED Urine Culture Comments NOT INDICATED Urine HCG, Qual POSITIVE 07/08/21 07/08/21 16:36 16:56 WBC RBC Hgb Hct MCV MCH MCHC RDW Plt Count MPV Neut # (Auto) Lymph # (Auto) Smyth # (Auto) Eos # (Auto) Baso # (Auto) Absolute Nucleated RBC Nucleated RBC % Sodium Potassium Chloride Carbon Dioxide Anion Gap BUN Creatinine Estimated GFR (MDRD) Glucose Calcium Magnesium Total Bilirubin AST ALT Alkaline Phosphatase Total Protein Albumin Globulin Albumin/Globulin Ratio Lipase TSH 4.32 HCG, Quant 724.03 Urine Color Urine Clarity Urine pH Ur Specific [place] Urine Protein Urine Glucose (UA) Urine Ketones Urine Occult Blood Urine Nitrite Urine Bilirubin Urine Urobilinogen Ur Leukocyte Esterase Ur Microscopic Review Urine Culture Comments Urine HCG, Qual PD MEDICAL DECISION MAKING - ED course Complexity details: reviewed results (U/S showing no obvious IUP nor unusual adnexal changes (small corpus luteal cyst noted). Quant is low so will need to reassess when it is higher (likely in 5-6 days).), considered differential (palpitations sound like benign PVCs. Incidental finding that she is , would seem unrelated per se. Will eval that however. ), d/w patient Departure - Departure Disposition: 01 Home, Self Care Clinical Impression: Heart palpitations, Early stage of , related bilateral lower abdominal cramping, antepartum Condition: Stable Instructions: ED Abdominal Pain Rule Out Ectopic, ED Palpitations Follow-Up: Brice Perez MD [Provider Admit Priv/Credential] - Mindi Clemens PA-C [Primary Care Provider] - Comments: Regarding the heart palpitations, these most commonly are fairly benign extra beats without any consequence. Try to stay well-hydrated. Decrease caffeine use to a small amount. Often the palpitations decrease over time after several days or week or so. They can be more common with stress, dehydration, increased caffeine use or other stimulants such as cough or cold medicines. The early could tie into it though more commonly would relate to mid or later when there is increased blood volume and blood flow through your system. Follow-up with your primary care as they can set you up with a heart monitor that you wear over the course of a week to evaluate the palpitations and ensure they are just benign PACs/PVCs. We did do an ultrasound today to evaluate the correct positioning of your given some mild cramping. This is to ensure no signs of tubal or such. Sharifa is early enough that they are not able to identify a in the uterus nor outside the uterus. Just too early to tell at this point. Follow-up with [facility] later this week. Call tomorrow for an appointment and let them know you were seen in the ER with concerns of early . They can repeat the blood test to see if it is going up appropriately and potentially repeat ultrasound in the office. Tylenol is okay during . You can use ibuprofen in early part of up to about 20 weeks. Again stay well-hydrated. Do not use the lorazepam that you take as needed. You could use Benadryl if ne eded for anxiety or sleep instead. For now your other medicine should be okay. Your thyroid medicine is fine and get the refill on Friday when you can get it and resume your normal dosing. Discharge Date/Time: 07/08/21 20:07
[2021-07-08 19:58] VITALS: BP 126/62
--- NOTE | 2021-07-08 20:31 | Ultrasound Report ---
PROCEDURE: OB First Trimester w/TV INDICATIONS: early preg, lower abd cramping TECHNIQUE: Real-time scanning was performed of the fetus and maternal pelvic organs, with image documentation. Endovaginal scanning was also performed to better visualize the fetus and maternal ovaries. COMPARISON: FINDINGS: The uterus is normal in size. The endometrial stripe complex is thickened measuring up to 17 mm in do uble layer thickness. There is an approximately 2 mm anechoic focus in the posterior endometrial whic h could periodically represent a tiny gestational sac. There is a hypoechoic anterior fundal fibroid measuring 1.4 cm. Cysts are present in both ovaries. No solid adnexal or ovarian mass. Ovaries are normal in size. IMPRESSION: No convincing evidence of an intrauterine currently. Early (both intrauterine or ectopic) cannot be strictly excluded. Close clinical and perhaps ultrasound follow-up recommended. Reviewed by: Erich Carter MD on 07/08/2021 8:30 PM PST Approved by: Erich Carter MD on 07/08/2021 8:30 PM PST Station ID: [id number]
== END 2021-07-08 20:07 | disposition home or self-care (01) ==
LOC: ED 15:46
DX: O99.891 Other specified diseases and conditions complicating pregnancy (principal); R00.2 Palpitations; O26.91 Pregnancy related conditions, unspecified, first trimester; R10.31 Right lower quadrant pain; R10.32 Left lower quadrant pain; O34.81 Maternal care for other abnormalities of pelvic organs, first trimester; N83.202 Unspecified ovarian cyst, left side; N83.201 Unspecified ovarian cyst, right side; O99.331 Smoking (tobacco) complicating pregnancy, first trimester; F17.200 Nicotine dependence, unspecified, uncomplicated; Z3A.00 Weeks of gestation of pregnancy not specified
CPT/HCPCS: 36415; 80053; 81001; 81003; 81025; 83690; 83735; 84443; 84702; 85025; 87086; 93005; 99282; 99284

== ENCOUNTER 2021-08-08 19:41 | Outpatient (CLI) | payer MEDICAID ==
--- NOTE | 2021-08-09 17:01 | Ultrasound Report ---
PROCEDURE: OB First Trimester w/TV INDICATIONS: POSTIVE PREGANCY TEST OUTSIDE/PRIOR DATING DATA: Last menstrual period (LMP): 06/06/2021. LMP-based estimated date of delivery (FREEDOM): 03/13/2022. First dating scan (date and location): 08/08/2021. Estimated date of delivery (FREEDOM) from first dating scan: 03/11/2022. TECHNIQUE: Real-time scanning was performed of the fetus and maternal pelvic organs, with image documentation. Endovaginal scanning was also performed to better visualize the fetus and maternal ovaries. COMPARISON: Ultrasound dated 07/08/2021 FINDINGS: A single living intrauterine gestation is present, with a heart rate of 164 bpm. [place]-rump kylie gth is 25 mm, corresponding to a 9 week 2 day gestation. Small subchorionic hemorrhage measuring 25 mm. Measurement variability in dating: +/- 4 weeks by LMP , +/- 7 days by mean sac diameter (use before 6 weeks gestation if crown-rump length not able to be m easured), +/- 5 days by crown-rump length (6-12 weeks gestation). Maternal organs: Left ovarian corpus luteal cyst, as before. No change in uterine fibroid. IMPRESSION: Single living intrauterine gestation. Small subchorionic hemorrhage. Routine clinical and sonographic follow-up recommended. Reviewed by: Ray Palacio MD on 08/09/2021 4:59 PM PST Approved by: Ray Palacio MD on 08/09/2021 4:59 PM PST Station ID: [id number]
== END 2021-08-08 19:42 | disposition home or self-care (01) ==
LOC: DI 19:41
PROVIDERS: ATTEND Nurse Practitioner Obstetrics & Gynecology
DX: O20.8 Other hemorrhage in early pregnancy (principal); Z3A.09 9 weeks gestation of pregnancy

== ENCOUNTER 2021-08-22 08:00 | Outpatient (CLI) | payer MEDICAID ==
[2021-08-22 22:02] LABS: CHLAMYDIA TRACHOMATIS DNA NEGATIVE (NEGATIVE); NEISSERIA GONORRHOEAE DNA NEGATIVE (NEGATIVE); TRICHOMONAS VAGINALIS DNA NEGATIVE (NEGATIVE)
== END 2021-08-22 23:59 ==
LOC: LAB 08:00
PROVIDERS: ATTEND Obstetrics & Gynecology
DX: Z34.80 Encounter for supervision of other normal pregnancy, unspecified trimester (principal)
CPT/HCPCS: 36415; 85025; 86592; 86762; 86787; 86803; 86850; 86900; 86901; 87340; 87389; 87491; 87591; 87661

== ENCOUNTER 2021-08-22 11:17 | Outpatient (CLI) | payer MEDICAID ==
[2021-08-22 11:36] LABS: BASOPHILS % (AUTO) 0.3 %; EOSINOPHILS # (AUTO) 0.2 10^3/uL (0.0-0.7); EOSINOPHILS % (AUTO) 2.5 %; HCT - HEMATOCRIT 39.5 % (37.0-47.0); HGB - HEMOGLOBIN 13.4 g/dL (12.0-16.0); LYMPHOCYTES # (AUTO) 1.7 10^3/uL (1.5-3.5); LYMPHOCYTES % (AUTO) 19.4 %; MEAN CORPUSCULAR HGB CONC 33.9 g/dL (32.0-36.0); MEAN CORPUSCULAR VOLUME 91.4 fL (81.0-99.0); MONOCYTES # (AUTO) 0.5 10^3/uL (0.0-1.0); MONOCYTES % (AUTO) 5.8 %; NEUTROPHILS # (AUTO) 6.3 10^3/uL (1.5-6.6); NEUTROPHILS % (AUTO) 71.5 %; PLT - PLATELET COUNT 258 10^3/uL (130-450); RED BLOOD COUNT 4.32 10^6/uL (4.20-5.40); RED CELL DISTRIBUTION WIDTH 14.2 % (12.0-15.0); WHITE BLOOD COUNT 8.8 x10^3/uL (4.8-10.8)
[2021-08-23 10:16] LABS: HEPATITIS B SURFACE ANTIGEN NON-REACTIVE (NON-REACTIVE)
[2021-08-23 12:21] LABS: HEPATITIS C ANTIBODY NON-REACTIVE (NON-REACTIVE)
[2021-08-23 14:56] LABS: HIV AG/AB 4TH GEN NON-REACTIVE (NON-REACTIVE)
== END 2021-08-22 11:18 | disposition home or self-care (01) ==
LOC: LAB 11:17
PROVIDERS: ATTEND Obstetrics & Gynecology
DX: Z34.80 Encounter for supervision of other normal pregnancy, unspecified trimester (principal)
CPT/HCPCS: 36415; 85025; 86592; 86762; 86787; 86803; 86850; 86900; 86901; 87340; 87389

== ENCOUNTER 2021-09-20 14:20 | Outpatient (CLI) | payer MEDICAID | END 2021-09-20 14:21 | disposition home or self-care (01) | LOC: LAB 14:20 | PROVIDERS: ATTEND Obstetrics & Gynecology | DX: O09.90 Supervision of high risk pregnancy, unspecified, unspecified trimester (principal) | CPT/HCPCS: 36415; 81599; 82105 ==

== ENCOUNTER 2021-10-24 10:37 | Outpatient (CLI) | payer MEDICAID ==
--- NOTE | 2021-10-24 16:19 | Ultrasound Report ---
PROCEDURE: OB Detailed Eval INDICATIONS: SUPERVISION OF OUTSIDE/PRIOR DATING DATA: Last menstrual period (LMP): 06/06/2021. LMP-based estimated date of delivery (FREEDOM): 03/13/2022. First dating scan (date and location): 08/08/2021. Estimated date of delivery (FREEDOM) from first dating scan: 03/11/2022. The below data below was generated using the ultrasound FREEDOM of 03/11/2022 TECHNIQUE: Real-time scanning was performed of the fetus, with image documentation and biometric measurements. COMPARISON: OB ultrasound 07/08/2021, 08/08/2021 FINDINGS: General: A single living intrauterine gestation is present. Presentation: Variable Placenta: Placental position is posterior, without previa. Amniotic fluid index: 11.0 cm, within normal limits for gestational age. Largest pocket 4.0 cm. heart rate: 145 beats per minute. Maternal cervical canal: 4.5 cm long; normal length is 2.5 cm or more. biometrics: Biparietal diameter: 4.4 cm 19 weeks 2 days Head circumference: 17.8 cm 20 weeks 2 days Abdominal circumference: 15.1 cm 20 weeks 2 days Femur length: 3.2 cm 20 weeks 0 days Estimated gestational age from initial scan: 19 weeks 5 days Composite gestational age from present scan: 19 weeks 6 days Estimated weight and percentile: 336 g, 38th percentile Measurement variability in biometric dating: +/- 10 days from 12-20 weeks gestation, +/- 2 weeks from 20-30 weeks gestation, +/- 3 weeks at 30 weeks gestation or later. Anatomic survey: Neuro: Ventricles are normal at less than 10 mm. Cisterna magna is normal at 3-11 mm. Cerebellum i s normal in size and morphology. Nuchal skin fold: Normal at less than 6 mm between 14 and 20 weeks gestational age. Face: Nose and lips, facial profile are normal. Spine: No evidence for spina bifida. Heart: 4-chambered heart is present, with normal ventricular outflow tracts. Diaphragm: Diaphragm is intact. Stomach: Left-sided stomach is present. Kidneys: No hydronephrosis. Normal is less than 5 mm in 2nd trimester, less than 7 mm in 3rd trimester. Cord: 3 vessel cord has orthotopic insertion. Bladder: Normal in size. Extremities: All 4 extremities are visualized. Miscellaneous: Uterine fibroid is noted unchanged. IMPRESSION: Single live intrauterine with ultrasound gestational age today of 19 weeks 6 days. Anatomy is within normal limits. Reviewed by: Cassandra Hyde MD on 10/24/2021 4:18 PM PDT Approved by: Cassandra Hyde MD on 10/24/2021 4:18 PM PDT Station ID: [id number]
== END 2021-10-24 10:38 | disposition home or self-care (01) ==
LOC: DI 10:37
PROVIDERS: ATTEND Obstetrics & Gynecology
DX: Z36.89 Encounter for other specified antenatal screening (principal); O09.92 Supervision of high risk pregnancy, unspecified, second trimester; Z3A.19 19 weeks gestation of pregnancy

== ENCOUNTER 2021-11-03 17:35 | Outpatient (CLI) | payer MEDICAID ==
[2021-11-03 18:14] VITALS: BP 103/52
--- NOTE | 2021-11-03 18:42 | PROVIDER PROGRESS NOTE ---
- HPI Chief Complaint: Decreased movement Current : Vital Signs Temperature 98.2 F 11/03/21 18:08 Heart Rate 76 11/03/21 18:08 Respiratory Rate 17 11/03/21 18:08 Blood Pressure 103/52 L 11/03/21 18:08 O2 Saturation 98 11/03/21 18:08 Temperature 98.6 F 11/03/21 18:14 Heart Rate 76 11/03/21 18:14 Respiratory Rate 17 11/03/21 18:14 Blood Pressure 103/52 L 11/03/21 18:14 O2 Saturation 98 11/03/21 18:08 - Plan Plan: Patient is a 41-year-old -0-0-2 at 21 weeks gestation presenting to triage for decreased movement. She initially was concerned about rectal bleeding. She has a history of Crohn's disease and has been in remission for quite some time. She does receive IV infusions regularly. She had one yesterday. She was concerned as she woke up this morning, and has had some frequent constipation. Her first episode of bleeding happen when wiping this morning after a large bowel movement. She subsequently had a smaller bowel movement that was it again firm which caused a another small amount of bleeding when she wiped. No blood in the toilet. No heavy bleeding. She only notices on the toilet paper. She did notice some pain with the bowel movement with a tearing sensation. She has no dizziness or lightheadedness. No diarrhea, nausea, vomiting. She also complains of decreased movement. She felt baby move last around 11 AM this morning. This was approximately 7 hours ago. She denies headache, right upper quadrant pain, changes in vision. All other symptoms reviewed and were negative except per HPI. Past medical history Crohn's disease Family history Noncontributory Social history: Denies tobacco, alcohol, drugs Physical Exam Temp Pulse Resp BP Pulse Ox 98.6 F 76 17 103/52 L 98 11/03/21 18:14 11/03/21 18:14 11/03/21 18:14 11/03/21 18:14 11/03/21 18:08 Constitutional: alert, no acute distress, well hydrated, well developed, well nourished, appropriate dress. Skin: normal turgor, normal color. Cardiovascular: RRR. Respiratory: no respiratory distress. Abdomen: Gravid, soft, nondistended, nontender. Psych: affect and mood appropriate, normal interaction, good eye contact. FHT: 150 beats per baseline, appropriate for gestational age Assessment and plan 41-year-old -0-0-2 at 21 weeks gestation with Crohn's disease 1. Decreased movement -Educated patient on expectations given gestational age. Patient should likely not feel regular movements until later in the second trimester. -Patient was reassured by presence of heart tones and Doppler. 2. Rectal bleeding -This sounds more like rectal fissures, although hemorrhoids are another possibility. She does have a history of Crohn's disease, but says she has been in remission, and her story seems more consistent with the previous diagnoses. Due to the pain when defecating, constipation, and blood only on wiping, likely an anal fissure, and this can be partially alleviated by relieving her constipation. If it persists, can consider medical management. -Discussed increasing dietary fiber as well as increasing supplemental fiber. Is taking docusate regularly, but not at maximal dose. Discussed maximum dosage with patient. -We did discuss her mildly low blood pressure, today at 103/52. She has been in the 120s to 130 systolic in clinic. She is asymptomatic at this time. Given the lack of symptoms and minimal amount of bleeding, this is less likely be a significant hypovolemic issue. Patient is trying to increase her water intake. If she develops symptoms or has continued bleeding she will let us know. 3. 21 weeks gestation -Has follow-up appoint with Dr. Hills in approximately 2 weeks.
== END 2021-11-03 18:45 | disposition home or self-care (01) ==
LOC: WFO 17:35 → FBP 17:39 → WFO 18:45
PROVIDERS: ATTEND Obstetrics & Gynecology
DX: O36.8120 Decreased fetal movements, second trimester, not applicable or unspecified (principal); O99.612 Diseases of the digestive system complicating pregnancy, second trimester; K59.00 Constipation, unspecified; K50.911 Crohn's disease, unspecified, with rectal bleeding; Z3A.21 21 weeks gestation of pregnancy

== ENCOUNTER 2022-01-03 13:11 | Outpatient (CLI) | payer MEDICAID | END 2022-01-03 13:12 | disposition home or self-care (01) | LOC: LAB.N 13:11 | PROVIDERS: ATTEND Obstetrics & Gynecology | DX: Z53.9 Procedure and treatment not carried out, unspecified reason (principal) | CPT/HCPCS: 82950; 85025; 85027 ==

== ENCOUNTER 2022-01-05 10:43 | Outpatient (CLI) | payer MEDICAID ==
[2022-01-05 19:09] LABS: HCT - HEMATOCRIT 32.3 % (37.0-47.0); HGB - HEMOGLOBIN 10.4 g/dL (12.0-16.0); MEAN CORPUSCULAR HEMOGLOBIN 31.1 pg (27.0-31.0); MEAN CORPUSCULAR HGB CONC 32.2 g/dL (32.0-36.0); MEAN CORPUSCULAR VOLUME 96.7 fL (81.0-99.0); RED BLOOD COUNT 3.34 10^6/uL (4.20-5.40); RED CELL DISTRIBUTION WIDTH 13.2 % (12.0-15.0); WHITE BLOOD COUNT 8.2 x10^3/uL (4.8-10.8)
== END 2022-01-05 10:44 | disposition home or self-care (01) ==
LOC: LAB.N 10:43
PROVIDERS: ATTEND Obstetrics & Gynecology
DX: O09.90 Supervision of high risk pregnancy, unspecified, unspecified trimester (principal)
CPT/HCPCS: 36415; 82950; 85025; 85027

== ENCOUNTER 2022-01-23 13:00 | Outpatient (CLI) | payer MEDICAID ==
--- NOTE | 2022-01-23 18:28 | Ultrasound Report ---
PROCEDURE: OB F/U or Repeat INDICATIONS: UTERINE SIZE DATE DISCREPANCY OUTSIDE/PRIOR DATING DATA: Last menstrual period (LMP): 06/06/2021. LMP-based estimated date of delivery (FREEDOM): 03/13/2022. First dating scan (date and location): 08/08/2021. Estimated date of delivery (FREEDOM) from first dating scan: 03/11/2022. The below data below was generated using the ultrasound FREEDOM of 03/11/2022 TECHNIQUE: Real-time scanning was performed of the fetus, with image documentation and biometric measurements. Endovaginal scanning: Not performed COMPARISON: 08/08/2021, 10/24/2021 FINDINGS: General: A single living intrauterine gestation is present. Presentation: Cephalic Placenta: Placental position is posterior, without previa. Amniotic fluid index: 16.6 cm, normal for gestational age. Largest pocket is 5.4 cm heart rate: 150 beats per minute. Maternal cervical canal: Closed and 5.4 cm long; normal length is 2.5 cm or more. biometrics: Biparietal diameter: 8.4 cm, 33 weeks, 4 days Head circumference: 31.2 cm, 34 weeks, 6 days Abdominal circumference: 28.1 cm, 32 weeks, 1 day Femur length: 6.2 cm, 32 weeks, 1 day Estimated gestational age from initial scan: 33 weeks, 2 days Composite gestational age from present scan: 33 weeks, 1 day Estimated weight and percentile: 1995 g, 21st percentile Measurement variability in biometric dating: +/- 10 days from 12-20 weeks gestation, +/- 2 weeks from 20-30 weeks gestation, +/- 3 weeks at 30 weeks gestation or more. Other: Not applicable. IMPRESSION: 1. Single intrauterine with appropriate growth. 2. Closed cervix and normal amniotic fluid volume. Reviewed by: Rashmi Dawson MD on 01/23/2022 6:27 PM PDT Approved by: Rashmi Dawson MD on 01/23/2022 6:27 PM PDT Station ID: [id number]
== END 2022-01-23 13:01 | disposition home or self-care (01) ==
LOC: DI 13:00
PROVIDERS: ATTEND Obstetrics & Gynecology
DX: O26.843 Uterine size-date discrepancy, third trimester (principal); Z36.89 Encounter for other specified antenatal screening; Z3A.33 33 weeks gestation of pregnancy

== ENCOUNTER 2022-02-15 08:00 | Outpatient (CLI) | payer MEDICAID | END 2022-02-15 23:59 | disposition home or self-care (01) | LOC: LAB 08:00 | PROVIDERS: ATTEND Nurse Practitioner | DX: Z36.85 Encounter for antenatal screening for Streptococcus B (principal) | CPT/HCPCS: 87797 ==

== ENCOUNTER 2022-09-22 14:57 | Emergency (ER) | payer MEDICAID ==
[2022-09-22 15:09] VITALS: BP 124/77
[2022-09-22] MEDS ORDERED: IBUPROFEN 800 MG TABLET PO STA (15:20)
[2022-09-22] MEDS ORDERED: HYDROcod/ACETAM 5/325 MG TABLET PO STA (15:20)
--- NOTE | 2022-09-22 15:26 | ED Physician Documentation ---
PD HPI LOWER EXT INJURY - Stated complaint Stated Complaint: RT KNEE PX - Chief complaint Chief Complaint: Ext Problem - History obtained from History obtained from: Patient - History of Present Illness PD HPI LOW EXT INJURY LOCATION: Right, Knee Pain level max: 8 Pain level now: 6 Associated symptoms: Swelling - Additional information Additional information: [id number] female states that she was in her kitchen today when she felt a pop in the right knee. Since that time she has had pain and swelling. Makes it better. Worse with movement. Does not recall any prior injuries to this knee. Has not taken anything for the pain. She states someone drove her to the ER today. 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 : None HEENT: None Psych: Depression, Anxiety Musculoskeletal: None Derm: None - Past Surgical History Past Surgical History: Yes General: Cholecystectomy HEENT: Tonsil/Adenoidectomy - Present Medications Home Medications: Ambulatory Orders Medication Instructions Recorded Confirmed Buspirone HCl 10 mg PO BID 04/26/19 01/26/21 LORazepam [Lorazepam] 0.5 mg PO BID PRN 04/26/19 01/26/21 Levothyroxine Sodium 100 mcg PO DAILY 04/26/19 01/26/21 buPROPion HCL [Bupropion HCl ER] 200 mg PO BID 04/26/19 01/26/21 Mesalamine 4 tab PO DAILY 02/17/20 01/26/21 Sertraline HCl 100 mg PO DAILY 09/06/20 01/26/21 HYDROcod/ACETAM 5/325 [[place] 5/325] 1 - 2 ea PO Q6H PRN #14 tablet 09/22/22 Ibuprofen [Motrin] 800 mg PO Q8H PRN #30 tablet 09/22/22 - Allergies Allergies/Adverse Reactions: Allergies Allergy/AdvReac Type Severity Reaction Status Date / Time morphine Allergy Respiratory Verified 09/22/22 15:09 oxycodone [From Percocet] Allergy Respiratory Verified 09/22/22 15:09 pollen extracts Allergy Respiratory Verified 09/22/22 15:09 - Social History Does the pt smoke?: Yes Smoking Status: Current every day smoker Does the pt drink ETOH?: Yes Does the pt have substance abuse?: No - Immunizations Immunizations are current?: No - POLST Patient has POLST: No PD ED PE NORMAL - Vitals Vital signs reviewed: Yes - General General: Alert and oriented X 3, No acute distress - HEENT HEENT: Moist mucous membranes - Derm Derm: Warm and dry - Extremities Extremities: Other (R knee - ACL, MCL, LCL, PCL intact. mild joint effusion. NVI.) - Neuro Neuro: Alert and oriented X 3 - Psych Psych: Normal mood, Normal affect Results - Vitals Vitals: Vital Signs - 24 hr 09/22/22 15:07 Temperature 36.8 C Heart Rate 73 Respiratory 16 Rate Blood Pressure 124/77 O2 Saturation 95 Oxygen O2 Source Room air - Rads (name of study) Right knee x-ray Radiology: Final report received, See rad report PD Medical Decision Making - ED course Complexity details: reviewed results, re-evaluated patient, considered alicia parks, d/w patient ED course: 42-year-old female with right knee pain. Unclear etiology. Possible meniscus injury? Does have a small effusion. Given crutches. Recommend a compression brace at home. Recommend that she follow-up with her PCP for further care. Patient counseled regarding signs and symptoms for which I believe and urgent re-evaluation would be necessary. Patient with good understanding of and agreement to plan and is comfortable going home at this time This document was made in part using voice recognition software. While efforts are made to proofread this document, sound alike and grammatical errors may occur. Departure - Departure Disposition: 01 Home, Self Care Clinical Impression: Knee effusion, right Condition: Good Instructions: ED Effusion Knee Follow-Up: Mindi Clemens PA-C [Primary Care Provider] - Within 1 week Prescriptions: Ibuprofen [Motrin] 800 mg PO Q8H PRN #30 tablet PRN Reason: PAIN &/OR FEVER HYDROcod/ACETAM 5/325 [[place] 5/325] 1 - 2 ea PO Q6H PRN #14 tablet PRN Reason: Pain Comments: [facility] [place] Your x-ray does show a small knee effusion. It is possible that you have a meniscus injury. Please follow-up with your doctor for repeat evaluation in about 1 week. They may want to perform an MRI to see if you do have a meniscus tear and for potential referral to orthopedics. I would recommend a neoprene brace as well. You may bear weight as tolerated. I am prescribing a short course of narcotic pain medication for you. These are potentially dangerous and addictive medications that should be used carefully. These medications may constipate you. Take an nthy-qsc-nhkeqhk stool softener (docusate) twice daily with plenty of water while taking these medications. If you go 24 hours without a bowel movement, take kjle-cnk-tiocpad miralax, per package instructions. Do not drink or drive while taking these medications. If you received narcotic or sedating medications while in the emergency department, do not drive for 24 hours. Store this medication in a safe, secure place and out of reach of children. It is a violation of federal law to give or sell this medication to another person or to use in a manner other than prescribed. The ED will not refill narcotic prescriptions, including prescriptions lost or stolen. To dispose of unwanted medications: 1. [facility] at [address] [facility] [address] in [place] has a medication drop box. They accept prescription medications (in pill form) Friday through Friday 9:00 a.m. to 5:00 p.m. 2. [facility] accepts prescription medications (in pill form only) for disposal year round. Call for more information. 3. Contact the [facility] for the next [facility] sponsored prescription drug collection event. , [phone], or [phone]; Forms: Activity restrictions Discharge Date/Time: 09/22/22 16:57
--- NOTE | 2022-09-22 15:53 | XRAY Report ---
PROCEDURE: Knee 4 View RT INDICATIONS: knee pain, swelling, no injury TECHNIQUE: 3 views of the right knee(s) were acquired. COMPARISON: None. FINDINGS: Bones: No fractures or dislocations. No suspicious bony lesions. Mild medial and lateral compartm ental joint space narrowing Soft tissues: Small joint effusion. No suspicious soft tissue calcifications. IMPRESSION: Small joint effusion. No fracture or dislocation Reviewed by: Bhavin Mcknight MD on 09/22/2022 2:52 PM AKST Approved by: Bhavin Mcknight MD on 09/22/2022 2:52 PM AKST Station ID: [id number]
== END 2022-09-22 16:57 | disposition home or self-care (01) ==
LOC: ED 14:57
DX: M25.461 Effusion, right knee (principal); F17.200 Nicotine dependence, unspecified, uncomplicated
CPT/HCPCS: 73564; 99283; A9270

== ENCOUNTER 2022-10-21 14:24 | Outpatient (CLI) | payer MEDICAID ==
--- NOTE | 2022-10-21 16:39 | MRI Report ---
PROCEDURE: KNEE WO - RT INDICATIONS: RIGHT KNEE PAIN TECHNIQUE: Noncontrast sagittal PD fast spin echo and T2 fast spin echo with fat saturation, sagittal 3-D gradie nt sequence with fat saturation; coronal T1 spin echo and PD fast spin echo with fat saturation, and axial PD fast spin echo with fat saturation through the knee. COMPARISON: Plain films dated 09/22/2022 FINDINGS: Image quality: Excellent. Menisci: Medial meniscus is intact. Linear oblique high T2 signal intensity traverses the inner, midd le, peripheral thirds of the lateral meniscal body, demonstrating inferior articular surface extensio n. Cruciate ligaments: The anterior and posterior cruciate ligaments appear intact. Medial structures: The medial collateral ligament appears intact. Visualized portions of the pes ans erinus tendons appear normal. No abnormal bursal fluid. Lateral structures: The lateral collateral ligament, long and short heads of the biceps femoris tend on appear intact. There is severe ill-defined T2 signal elevation within the popliteus muscle and mus cular tendinous junction. Iliotibial band appears normal. Anterior structures: The quadriceps and patellar tendons appear intact. Patellar alignment is tiffani l. No femoral trochlear dysplasia or ventral trochlear prominence. No edema in the infrapatellar fa t pad. Moderate prepatellar subcutaneous edema and fluid. Bones and cartilage: No bone marrow contusions or fractures. Mild subchondral degenerative marrow ed ramya within the weightbearing aspects of the medial femoral condyle and medial tibial plateau. Mild de generative marrow edema within the medial and lateral patellar facets. Mild tricomponent mild periare olar articular osteophyte formation. Severe articular cartilage loss diffusely overlies the weightbea ring aspects of the medial femoral condyle and medial tibial plateau. Mild articular cartilage loss d iffusely overlies the weightbearing aspects of the lateral femoral condyle and lateral tibial plateau . Moderate to severe articular cartilage loss overlies the medial and lateral patellar facets. Severe articular cartilage loss overlies the posterior nonweightbearing aspect of the lateral femoral condy le with underlying subchondral cyst formation. Joint space: There is a moderate knee joint effusion. No Pradhan's cyst. Normal appearing synovial pl icae are incidentally noted. IMPRESSION: 1. Tricompartmental osteoarthritis with associated articular cartilage loss. 2. Lateral meniscal tearing. 3. Moderate grade tearing of the popliteus. 4. Prepatellar bursitis. 5. Knee joint effusion. Reviewed by: Ray Palacio MD on 10/21/2022 4:38 PM PDT Approved by: Ray Palacio MD on 10/21/2022 4:38 PM PDT Station ID: [id number]
== END 2022-10-21 14:25 | disposition home or self-care (01) ==
LOC: DI 14:24
PROVIDERS: ATTEND Physician Assistant
DX: M17.11 Unilateral primary osteoarthritis, right knee (principal); S83.281A Other tear of lateral meniscus, current injury, right knee, initial encounter; M25.462 Effusion, left knee; M70.41 Prepatellar bursitis, right knee; S86.211A Strain of muscle(s) and tendon(s) of anterior muscle group at lower leg level, right leg, initial encounter

== ENCOUNTER 2024-01-05 10:48 | Outpatient (CLI) | payer MEDICAID ==
--- NOTE | 2024-01-06 10:54 | Mammography Report ---
BILATERAL DIGITAL SCREENING MAMMOGRAM 3D/2D: 01/05/2024 CLINICAL: Baseline exam. Routine screening. No prior exams were available for comparison. There are scattered areas of fibroglandular density in both breasts (category b / 25%-50% glandular t issue). No significant masses, calcifications, or other findings are seen in either breast. IMPRESSION: NEGATIVE There is no mammographic evidence of malignancy. A 1 year screening mammogram is recommended. Based on the Tyrer Cuzick model (a risk assessment model) the patient's lifetime risk is 7.6% and her 10 year risk is 1.1%. According to the ACR, ACS, and NCCN guidelines, an annual breast MRI exam laura g with mammogram is recommended if the patient's lifetime risk is 20% or greater. This exam was interpreted at Station ID: [id number]. NOTE: For mammograms, a report in lay terms will be sent to the patient. Approximately 15% of breast malignancies will not be visualized mammographically. In the management of a palpable breast mass, a negative mammogram must not discourage biopsy of a clinically suspicious lesion. Electronically Signed By: Octavia burns/marley:01/05/2024 16:51:33 letter sent: No_Letter ACR BI-RADS Category 1: Negative 3341F PARENCHYMAL PATTERN: (A) - The breast(s) demonstrate(s) scattered fibroglandular densities. BI-RADS CATEGORY: (1) - 1 RECOMMENDATION: (ANNUAL) - Recommend routine annual screening mammography. [id number] 1 year screening LATERALITY: (B)
== END 2024-01-05 10:49 | disposition home or self-care (01) ==
LOC: DI.N 10:48
DX: Z12.31 Encounter for screening mammogram for malignant neoplasm of breast (principal); R92.323 Mammographic fibroglandular density, bilateral breasts

== ENCOUNTER 2024-03-18 10:01 | Emergency (ER) | payer MEDICAID ==
[2024-03-18 10:23] VITALS: BP 132/78; O2SAT 98
--- NOTE | 2024-03-18 10:27 | ED Physician Documentation ---
History of Present Illness - Stated complaint Stated Complaint: JOINT SWELLING,PX GEN WEAKNESS - Chief complaint Chief Complaint: General - History obtained from History obtained from: Patient - Additonal information Additional information: She has a history of Crohn's with extraintestinal manifestations. She has been on Entyvio starting somewhat recently for that. Despite that over the last week has developed her usual Crohn's flare symptoms which include abdominal pain and diarrhea without hematochezia and diffuse joint and bodyaches and swelling especially swelling of the feet and ankles. She also has a flare of erythema nodosum on the right greater than left legs. Denies shortness of breath. She was on steroids within the last couple of months for another flare. 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 : None HEENT: None Psych: Depression, Anxiety Musculoskeletal: None Derm: None - Past Surgical History Past Surgical History: Yes General: Cholecystectomy HEENT: Tonsil/Adenoidectomy - Present Medications Home Medications: Ambulatory Orders Medication Instructions Recorded Confirmed Levothyroxine Sodium 112 mcg PO DAILY 04/26/19 03/18/24 Sertraline HCl 150 mg PO DAILY 09/06/20 03/18/24 Furosemide [Lasix] 20 mg PO DAILY #5 tablet 03/18/24 HYDROcod/ACETAM 5/325 [[place] 5/325] 1 - 2 tab PO Q6H PRN #15 tablet 03/18/24 buPROPion HCL [Wellbutrin Xl] 300 mg PO DAILY 03/18/24 03/18/24 predniSONE [Deltasone] 20 mg PO [id number] #21 tab 03/18/24 - Allergies Allergies/Adverse Reactions: Allergies Allergy/AdvReac Type Severity Reaction Status Date / Time morphine Allergy Respiratory Verified 03/18/24 10:16 oxycodone [From Percocet] Allergy Respiratory Verified 03/18/24 10:16 pollen extracts Allergy Respiratory Verified 03/18/24 10:16 - Social History Does the pt smoke?: Yes Smoking Status: Current every day smoker Does the pt drink ETOH?: Yes Does the pt have substance abuse?: No Substance Use and Type: Marijuana - Immunizations Immunizations are current?: No - POLST Patient has POLST: No PD ED PE NORMAL - Vitals Vital signs reviewed: Yes - General General: Alert and oriented X 3, No acute distress - Abdomen Abdomen: Normal bowel sounds, Soft, Non tender - Extremities Extremities: Other (She is tender to both ankles, both knees, both wrists. There is swelling of the ankles and feet on both sides and erythema nodosum on the right morrissey.) - Neuro Neuro: Alert and oriented X 3, Normal speech Results - Vitals Vitals: Vital Signs - 24 hr 03/18/24 10:12 Temperature 36.6 C Heart Rate 83 Respiratory 16 Rate Blood Pressure 132/78 H O2 Saturation 98 Oxygen O2 Source Room air PD Medical Decision Making - ED course ED course: She presents with Crohn's flare with extraintestinal manifestations. Will restart steroids pending GI follow-up and she needed something for pain as well. Despite allergies to morphine and oxycodone has tolerated hydrocodone she says in the past without issue. She also wanted something for the swelling in the ankles and feet and was offered a short prescription of Lasix but suspect she will not need much given that she is diuretic mindi and suspect once the steroids kick in that the swelling will dissipate. Departure - Departure Disposition: 01 Home, Self Care Clinical Impression: Crohn's colitis Qualifiers: Digestive disease complication type: unspecified complication Qualified Code(s): K50.119 - Crohn's disease of large intestine with unspecified complications Condition: Good Record reviewed to determine appropriate education?: Yes Instructions: Disease Crohn Dc Prescriptions: predniSONE [Deltasone] 20 mg PO [id number] #21 tab Furosemide [Lasix] 20 mg PO DAILY #5 tablet HYDROcod/ACETAM 5/325 [[place] 5/325] 1 - 2 tab PO Q6H PRN #15 tablet PRN Reason: Pain Comments: I sent your prescriptions electronically to the [facility] in [place]. 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 In addition to the pain medication and steroids I am writing for a few water pills to help with the edema in your ankles and feet, but I suspect you will not need this once the steroids kick in. Return if worse. I am prescribing a short course of narcotic pain medication for you. These are potentially dangerous and addictive medications that should be used carefully. These medications may constipate you. Take an eooo-eca-njhvqkc stool softener (docusate) twice daily with plenty of water while taking these medications. If you go 24 hours without a bowel movement, take drzv-bic-yqxzgem miralax, per package instructions. Do not drink or drive while taking these medications. If you received narcotic or sedating medications while in the emergency department, do not drive for 24 hours. Store this medication in a safe, secure place and out of reach of children. It is a violation of federal law to give or sell this medication to another person or to use in a manner other than prescribed. The ED will not refill narcotic prescriptions, including prescriptions lost or stolen. To dispose of unwanted medications: 1. [facility] provides a [facility] box for medication in pill form only (no liquids) 8:00 am to 4:30 p.m. Friday-Friday in the lobby of the [facility], [address] [place] [address]. Empty pills into ziplock bag before disposal. Call [phone] for information. 2.[employer] is a free service available to all [facility] residents. Go to [email or web address] Note that many narcotic pain relievers also contain Tylenol/acetaminophen. P lease ensure that your total dose of acetaminophen from all sources does not exceed 3 g (3000 mg) per day. Forms: PCP List
== END 2024-03-18 10:36 | disposition home or self-care (01) ==
LOC: ED 10:01
DX: K50.119 Crohn's disease of large intestine with unspecified complications (principal); F17.200 Nicotine dependence, unspecified, uncomplicated; F32.A Depression, unspecified; F41.9 Anxiety disorder, unspecified
CPT/HCPCS: 99283; 99284